=== PATIENT | female | born 1965 | race Caucasian/White ===

== ENCOUNTER → 2020-05-24 15:25 | Outpatient (CLI) | payer OTHER, SELFPAY ==
[2019-05-03 10:52] VITALS: BMI 31.2
[2020-05-24 17:14] LABS: Absolute Lymphocyte Count 1.91 X10^3/uL (0.83-4.51); Absolute Neutrophil Count 6.6 X10^3/uL (2.0-7.7); Basophil# 0.09 X10^3/uL; Basophil% 0.9 % (0-1); Eosinophil# 0.35 X10^3/uL; Eosinophils% 3.7 % (0-5); Hematocrit 36.3 % (37-47); Hemoglobin 12.3 g/dL (12.0-15.0); Lymphocyte # 1.91 X10^3/ul (4.0); Lymphocyte % 20.1 % (19-41); Mean Corp Hgb Conc 33.9 g/dL (32-36); Mean Corpuscular Hgb 33.3 pg (27.0-32.0); Mean Corpuscular Volume 98.4 fL (81-99); Mean Platelet Vol. 9.6 fl (6.2-12.0); Monocyte# 0.54 X10^3/uL; Monocyte% 5.7 % (0-10); NRBC Flagged by Analyzer 0 % (0-5); Neutrophil # 6.57 X10^3/uL (2.7-7.7); Neutrophil % 69.2 % (47-70); Platelet Count 233 K/mm3 (150-450); RBC Distribution Width CV 13.5 % (11.6-14.6); RBC Distribution Width SD 49.2 fl (35.1-43.9); Red Blood Count 3.69 M/mm3 (4.2-5.4); White Blood Count 9.5 K/mm3 (4.4-11.0)
[2020-05-24 18:41] LABS: ALB/GLOB Ratio 1.3 RATIO (0.9-2.4); AST(SGOT) 32 U/L (15-37); Alanine Aminotransfer ALT/SGPT 28 U/L (13-56); Albumin, Serum 4.4 g/dL (3.2-5.0); Alkaline Phosphatase 64 U/L (45-117); Anion Gap 3 (5-15); BUN 20 mg/dL (7-18); BUN/Creat Ratio 16.3 RATIO (10-20); Calcium,Total 8.6 mg/dL (8.5-10.1); Chloride 109 mmol/L (98-107); Creatinine, Serum 1.23 mg/dL (0.55-1.02); EST Glomerular Filtration Rate 48 mL/min (>60); Est Glom Filt Rate - Afr Amer 58 mL/min (>60); Globulin 3.4 g/dL (2.2-4.2); Glucose 90 mg/dL (74-106); Potassium 4.2 mmol/L (3.5-5.1); Protein, Total 7.8 g/dL (6.4-8.2); Sodium Level 139 mmol/L (136-145)
[2020-05-25 14:53] LABS: Hepatitis C Antibody Non-Reactive (Nonreactive); Vitamin D,25 Hydroxy 20.7 ng/mL
== END ==
PROVIDERS: PCP Family Medicine Geriatric Medicine; Visit Provider Family Medicine Geriatric Medicine
DX: E55.9 Vitamin D deficiency, unspecified (principal); R53.83 Other fatigue; Z13.89 Encounter for screening for other disorder
CPT/HCPCS: 36415; 80053; 82306; 84443; 85025; 86803

== ENCOUNTER → 2020-06-08 15:38 | Outpatient (CLI) | payer OTHER, SELFPAY ==
[2019-05-03 10:52] VITALS: BMI 31.2
[2020-06-06 12:14] VITALS: BMI 31.2
--- NOTE | 2020-06-08 15:41 | CT_ITS ---
STUDY: LOW DOSE CT LUNG CANCER SCREENING REASON FOR EXAM: Female, 55 years old. 5-6 cigarettes per day for 25 years. Active smoker. RADIATION DOSAGE (If Supplied By Facility): CTDIvol = ( 3.02 ) mGy, DLP = ( 98.17 ) mGycm TECHNIQUE: No contrast was administered. Low dose technique was utilized (average mAS-38 and kVp 120). 1.25 mm axial source images with a slice interval of 1.25-mm were reconstructed in lung windows. 2.5 mm axial source images with a slice interval of 2.5-mm were reconstructed in lung windows. 5.0 mm axial source images with a slice interval of 5.0-mm were reconstructed in soft tissue windows. Nodule measured using lung windows on PACS and/or independent workstation with automated measurement of minimum and maximum diameter. Nodule measurement reported as average diameter rounded to the nearest whole number. Growth is defined as an increase ins size of greater than 1.5 mm. COMPARISON: None. NODULES: Nodule #: 1 Density: Solid Lung location: Left upper lobe: Pleural-based Location in series: Series Number: 2 Image: 48 Size - D1 x D2 mm: 1 x 1 mm: 1 mm average diameter Margin: Smooth Shape: Round Calcification: Yes Fat: No Temporal comparison: None Total lung nodules (excluding granulomas): 0 Emphysema: No emphysematous changes. There is a small bleb versus air cyst in the left lower lobe. Endobronchial lesion: None Aorta: Minimal atherosclerotic changes of the aortic arch. There is no aneurysm. Coronary arteries: Normal Heart: Normal Pulmonary artery: Normal Mediastinal nodes: Not Other chest and abdominal findings: Bilateral degenerative changes of the thoracic spine. CT/Low Dose CT Lung Screening IMPRESSION: Lung-RADS category 1 - Continue annual screening with LDCT in 12 months. IMPORTANT NOTES FOR USE: ACR Lung-RADS Version 1.0 Assessment Categories Release Date: March 21, 2014 Category: Coded 0-4 bases on nodule(s) with highest degree of suspicion. Negative screen is defined as categories 1 and 2; a positive screen is defined as categories 3 and 4. Category 3 and 4A nodules that are unchanged on interval CT should be coded as category 2, and individuals returned to screening in 12 months. Category 4X: Category 3 or 4 nodules with additional imaging findings that increase the suspicion of lung cancer, such as spiculation, GGN that doubles in size in 1 year, enlarged lymph notes, etc. Category Modifiers: S (significant finding unrelated to lung cancer) and C (prior history of treated lung cancer) may be added to the 0-4 Lung-RADS Electronically Signed: Eamon Eid DO at 16:11 EDT Tel [phone], Service support ,
== END ==
PROVIDERS: PCP Family Medicine Geriatric Medicine; Referring Provider Family Medicine Geriatric Medicine; Visit Provider Family Medicine Geriatric Medicine
DX: Z12.2 Encounter for screening for malignant neoplasm of respiratory organs (principal); F17.210 Nicotine dependence, cigarettes, uncomplicated; T65.222S Toxic effect of tobacco cigarettes, intentional self-harm, sequela
CPT/HCPCS: G0297

== ENCOUNTER → 2020-06-14 15:14 | Outpatient (CLI) | payer OTHER, SELFPAY ==
[2020-06-06 12:14] VITALS: BMI 31.2
--- NOTE | 2020-06-14 15:15 | RAD_ITS ---
STUDY: X-RAY - PELVIS AND LEFT HIP REASON FOR EXAM: Female, 55 years old. hip pain TECHNIQUE: 3 views of the pelvis and hip. COMPARISON: None. FINDINGS: There is a non-specific bowel gas pattern. There are multiple calcified phleboliths. Status post tubal ligation. Scattered few dense bone lesions likely bone islands. Intact pelvic ring. Normal bilateral superior and inferior pubic rami. Normal pubic symphysis. Normal bilateral ischial tuberosities. Extensive marginal osteophytosis and degenerative cyst formation of the femoral head. Sclerotic and cystic changes with marginal osteophytosis of the acetabulum. Severe joint space narrowing. Similar but not as extensive findings of the right hip. RAD/HIP, UNI W/ Pelvis 2-3 Views IMPRESSION: Advanced osteoarthritic changes of the left hip as described above. Electronically Signed: Trish Wright MD at 15:58 EDT , Service support ,
--- NOTE | 2020-06-14 15:15 | RAD_ITS ---
STUDY: X-RAY - LUMBAR SPINE REASON FOR EXAM: Female, 55 years old. hip and LBP TECHNIQUE: 5 view(s) of the lumbar spine were obtained. COMPARISON: None FINDINGS: There is an exaggerated lumbar lordosis. There is no substantial scoliosis. Mild, grade 1, anterolisthesis of L4 secondary to advanced facet arthrosis. Mild, grade 1, anterolisthesis of L5 secondary to advanced facet arthrosis. Normal vertebral bodies and endplates. Mild disc narrowing at L4-5 and moderate disc narrowing at L5-S1. Facet arthrosis present from L2 through S1. Status post cholecystectomy. RAD/L/S Spine Min 4 Views IMPRESSION: Exaggerated lumbar lordosis without scoliosis. Grade 1 anterolisthesis of L4 and L5 secondary to advanced facet arthrosis. Mild to moderate degenerative disc narrowing at L4-5 and L5-S1. Facet arthrosis L2-S1. Electronically Signed: Trish Wright MD at 16:01 EDT , Service support ,
== END ==
PROVIDERS: PCP Family Medicine Geriatric Medicine; Referring Provider Orthopaedic Surgery; Visit Provider Orthopaedic Surgery
DX: M25.552 Pain in left hip (principal); M79.605 Pain in left leg
CPT/HCPCS: 72110; 73502

== ENCOUNTER → 2020-06-27 16:02 | Outpatient (CLI) | payer OTHER, SELFPAY ==
[2020-06-14 15:43] VITALS: BMI 31.2
[2020-06-27 17:31] LABS: Thyroid Stim Hormone (TSH) 0.87 uIU/mL (0.358-3.74)
== END ==
PROVIDERS: PCP Family Medicine Geriatric Medicine; Visit Provider Family Medicine Geriatric Medicine
DX: E03.9 Hypothyroidism, unspecified (principal)
CPT/HCPCS: 36415; 84443

== ENCOUNTER → 2020-08-17 16:52 | Outpatient (CLI) | payer OTHER, SELFPAY ==
[2020-08-07 14:57] VITALS: BMI 31.2
--- NOTE | 2020-08-17 16:54 | MRI_ITS ---
STUDY: MRI LUMBAR SPINE WITHOUT CONTRAST REASON FOR EXAM: Female, 55 years old. radiculopathy, low back pain into L hip, h/o spinal stenosis TECHNIQUE: Standardized fat and water weighted pulse sequences were obtained in the sagittal and axial planes. COMPARISON: X-ray 06/14/2020. FINDINGS: T12-L1: Normal endplates. Disc dehydration. Normal bilateral facet joints. Normal central canal and bilateral lateral recesses. Normal bilateral intervertebral neural foramina. Normal lumbar lordosis. There is no substantial scoliosis. Normal conus medullaris that terminates at the L1 level. L1-2: Normal endplates. Disc dehydration. Normal bilateral facet joints. Normal central canal and bilateral lateral recesses. Normal bilateral intervertebral neural foramina. L2-3: Normal endplates. Disc dehydration. Normal bilateral facet joints. Normal central canal and bilateral lateral recesses. Normal bilateral intervertebral neural foramina. L3-4: Normal endplates. Disc dehydration. Normal bilateral facet joints. Normal central canal and bilateral lateral recesses. Normal bilateral intervertebral neural foramina. L4-5: Normal endplates. Disc dehydration and mild disc space narrowing. 5 mm degenerative anterolisthesis. Severe facet hypertrophy bilaterally. Mild canal stenosis, greater in the transverse dimension, due to anterolisthesis, spondylosis, facet and ligamentous hypertrophy. There is effacement of the lateral recesses bilaterally due to facet and ligamentous hypertrophy. Moderate to severe foraminal stenosis, greater on the left, due to spurring and facet hypertrophy. L5-S1: Normal endplates. Disc dehydration and mild disc space narrowing. 5 mm anterolisthesis. Unilateral left spondylolysis. Severe canal stenosis due to anterolisthesis and shortened pedicles. Moderate foraminal stenosis due to anterolisthesis and uncovered disc. Moderate facet hypertrophy. Normal visualized sacral ala. Normal visualized paraspinous soft tissue structures. MRI/Spine Lumbar (Routine) IMPRESSION: 1. Severe L5-S1 canal stenosis. Anterolisthesis is contributory. 2. Mild L4-L5 canal stenosis. Anterolisthesis is contributory. 3. Moderate to severe foraminal stenosis at L4-L5 and L5-S1. 4. Additional degenerative changes are noted above. Electronically Signed: Noemi Lopez MD at 22:53 EDT Tel , Service support ,
== END ==
PROVIDERS: PCP Family Medicine Geriatric Medicine; Referring Provider Orthopaedic Surgery; Visit Provider Orthopaedic Surgery
DX: M54.16 Radiculopathy, lumbar region (principal); M51.36 Other intervertebral disc degeneration, lumbar region
CPT/HCPCS: 72148

== ENCOUNTER → 2020-08-24 15:08 | Outpatient (CLI) | payer OTHER, SELFPAY ==
[2020-08-21 08:01] VITALS: BMI 31.2
[2020-08-24 15:53] LABS: Absolute Lymphocyte Count 1.93 X10^3/uL (0.83-4.51); Absolute Neutrophil Count 6.7 X10^3/uL (2.0-7.7); Basophil# 0.07 X10^3/uL; Basophil% 0.7 % (0-1); Eosinophil# 0.15 X10^3/uL; Eosinophils% 1.6 % (0-5); Hematocrit 43.3 % (37-47); Hemoglobin 14.5 g/dL (12.0-15.0); Lymphocyte # 1.93 X10^3/ul (4.0); Lymphocyte % 20.5 % (19-41); Mean Corp Hgb Conc 33.5 g/dL (32-36); Mean Corpuscular Hgb 31.3 pg (27.0-32.0); Mean Corpuscular Volume 93.5 fL (81-99); Mean Platelet Vol. 9.7 fl (6.2-12.0); Monocyte# 0.54 X10^3/uL; Monocyte% 5.7 % (0-10); NRBC Flagged by Analyzer 0 % (0-5); Neutrophil # 6.66 X10^3/uL (2.7-7.7); Platelet Count 304 K/mm3 (150-450); RBC Distribution Width CV 11.6 % (11.6-14.6); Red Blood Count 4.63 M/mm3 (4.2-5.4); White Blood Count 9.4 K/mm3 (4.4-11.0)
[2020-08-24 16:26] LABS: ALB/GLOB Ratio 1.1 RATIO (0.9-2.4); AST(SGOT) 13 U/L (15-37); Alanine Aminotransfer ALT/SGPT 19 U/L (13-56); Albumin, Serum 3.9 g/dL (3.2-5.0); Alkaline Phosphatase 77 U/L (45-117); Anion Gap 5 (5-15); BUN 15 mg/dL (7-18); BUN/Creat Ratio 22.3 RATIO (10-20); Calcium,Total 9.1 mg/dL (8.5-10.1); Chloride 106 mmol/L (98-107); Creatinine, Serum 0.67 mg/dL (0.55-1.02); EST Glomerular Filtration Rate 96 mL/min (>60); Est Glom Filt Rate - Afr Amer 116 mL/min (>60); Globulin 3.6 g/dL (2.2-4.2); Glucose 90 mg/dL (74-106); Potassium 4.3 mmol/L (3.5-5.1); Protein, Total 7.5 g/dL (6.4-8.2); Sodium Level 139 mmol/L (136-145); Thyroid Stim Hormone (TSH) 0.34 uIU/mL (0.358-3.74)
== END ==
PROVIDERS: PCP Family Medicine Geriatric Medicine; Visit Provider Family Medicine Geriatric Medicine
DX: R53.83 Other fatigue (principal)
CPT/HCPCS: 36415; 80053; 84443; 85025

== ENCOUNTER → 2020-09-01 16:39 | Outpatient (CLI) | payer OTHER, SELFPAY ==
[2020-08-21 08:01] VITALS: BMI 31.2
--- NOTE | 2020-09-01 16:40 | CT_ITS ---
HISTORY: RIC LEFT HIP, PAIN TECHNIQUE: Noncontrast bone protocol CT of the left lower extremity using [facility] preoperative protocol was performed without contrast. 2D reformats were performed by the technologist. Number of images including paperwork: [id number]. A radiation dose optimization technique was used for this scan. COMPARISON: Left hip 06/14/2020 FINDINGS: BONES: No acute fracture. JOINTS: Severe degenerative changes at the hips are present with the joint space narrowing, subchondral sclerosis, subchondral cystic changes and osteophyte formation. There is some fragmentation of the superior aspect of the left femoral head. Moderate to severe degenerative changes of the medial and lateral compartments of the knees, greater in the medial compartments. SOFT TISSUES: Unremarkable. FOREIGN BODY: No radiopaque foreign body. VISIBLE PELVIS: Colonic diverticulosis. CT/Extremity Lower without Contra IMPRESSION: Severe degenerative changes of the hips. Some fragmentation of the left femoral head is noted. Individualized dose optimization techniques were used for this CT. at 0248 Reported and signed by: Juliet Munguia MD Electronically Signed: Juliet Munguia MD at 2:47 EDT Tel , Service support ,
== END ==
PROVIDERS: PCP Family Medicine Geriatric Medicine; Referring Provider Orthopaedic Surgery; Visit Provider Orthopaedic Surgery
DX: M16.12 Unilateral primary osteoarthritis, left hip (principal)
CPT/HCPCS: 73700

== ENCOUNTER → 2020-09-15 08:50 | Outpatient (CLI) | payer OTHER, SELFPAY ==
[2020-08-21 08:01] VITALS: BMI 31.2
== END ==
PROVIDERS: PCP Family Medicine Geriatric Medicine; Referring Provider Orthopaedic Surgery; Visit Provider Orthopaedic Surgery
DX: Z00.00 Encounter for general adult medical examination without abnormal findings (principal)

== ENCOUNTER 2020-09-19 09:58 | Inpatient (IN) | payer OTHER, SELFPAY ==
[2020-08-21 08:01] VITALS: BMI 31.2
[2020-09-12 09:39] LABS: Prothrombin Time (Protime)PT. 12.2 SECONDS (11.7-14.9)
[2020-09-12 09:40] LABS: Partial Thromboplast Time 24.8 Seconds (24.1-36.2)
[2020-09-12 09:51] LABS: Magnesium 2.3 mg/dL (1.6-2.6)
[2020-09-19] VITALS (13 sets, daily range): BP systolic 101–177; BP diastolic 66–93; PULSE 51–90; RESP 16–18; TEMP 35.8–37.2; O2SAT 94–100; BMI 27.9
[2020-09-19] MEDS: Celecoxib 200 MG Capsule 400 MG PO (06:07)
[2020-09-19] MEDS: Acetaminophen 500 MG Tablet 1000 MG PO ×3 (06:07→22:06)
[2020-09-19] MEDS: Gabapentin 600 MG Tablet PO (06:07)
[2020-09-19] MEDS: Scopolamine 1mg/72hr Patch 1 PATCH TRANSDERM. (06:08)
[2020-09-19] MEDS: Lactated Ringers 1,000 ML 999 ML IV (06:09)
[2020-09-19 07:06] LABS: Bedside Glucose 106 mg/dL (70-110)
--- NOTE | 2020-09-19 07:24 | HP.PCM_ITS ---
History and Physical Date of Admission: 09/19/20 Intake Vital Signs 08/21/20 BMI 31.2 Intake Visit Reasons: LEFT HIP Allergies iodine Allergy (Verified 05/03/19 10:53) Swelling [facility] Medical History (Updated 05/03/19 @ 10:54 by Sridevi Molina) Thyroid cancer (Acute) Surgical History (Updated 05/03/19 @ 10:54 by Sridevi Molina) History of cholecystectomy (Acute) Social History (Updated 08/21/20 @ 15:[address] Frank Ruiz DO) Smoking Status: Unknown if ever smoked alcohol intake: never HPI LEFT HIP: Details: Parts of this documentation were recorded by a scribe, this documentation accurately reflects the service provided and the decisions made by me, Dr. Frank Ruiz DO 08/21/20 0801. JACK DUNN is a 55 year old F here today for F/U after having lumbar MRI. Patient continues to have left groin pain and left hip pain along with radiating left leg pain. Denies numbness, tingling or other associated symptoms. Patient states the the worst pain is the left groin pain and left lateral hip pain. She does have a hx of leg stripping from varicose veins. Denies any leg stenting. Does have a hx of thyroid cancer without metastisis. Ortho Exam General General: Yes no acute distress Neurologic: Yes alert, Yes oriented x3 Psychologic: Yes reasonable and appropriate Left Hip Skin/Wound: No Ecchymosis, No soft tissue swelling, No Erythema Hip: Absent eccymosis, soft tissue swelling or erythema Homans Sign: No HIP: crepitation left hip socket 0 internal rotation 10 external rotation 4/5 hip flexion strenght with no pain sensation intact over BL lower extremities good strength throughout lower extremity Supplemental Info 08/17/2020 MRI lumbar spine: 1. Severe L5-S1 canal stenosis. Anterolisthesis is contributory. 2. Mild L4-L5 canal stenosis. Anterolisthesis is contributory. 3. Moderate to severe foraminal stenosis at L4-L5 and L5-S1. 4. Additional degenerative changes are noted above. 06/14/2020 x-ray left hip: advanced [id number] DJD 06/14/2020 x-ray lumbar spine: Advanced spondylosis of facets and spondylolisthesis L4-L5 L5-S1 grade 1 Assessment & Plan Problems 1. Lumbar radiculopathy M54.16 2. Spinal stenosis of lumbar region, unspecified whether neurogenic claudication present M48.061 3. Spondylolisthesis, lumbar region M43.16 4. Primary osteoarthritis of left hip M16.12 Plan Personally reviewed patients MRI of the lumbar spine. Patient educated that she does have some stenosis at L5-S1 along with a spondylolisthesis. Patient educated that the radiating leg pain is from the lumbar spine but she does have OA of her left hip and the right hip as seen in her pelvic x-rays. Patient educated that she will need to see a spinal surgeon for the low back pain and radiating leg pain but she is also a candidate for a left total hip. Patient states that the left hip pain is worse and she wishes to proceed with left total hip arthroplasty first. Risks, benefits and alternatives of surgery reviewed including but not limited to bleeding, infection, nerve, artery and/or tissue damage, fracture, VTE, leg length discrepancy, dislocation, need for hip precautions, continued pain and expected post-operative course. Patient educated that I would recommend the West robotic assist. She will have strict hip precautions for 6 weeks after surgery and will keep the restrictions in mind for 3 months post op to avoid hip dislocation post op. Follow up 2 weeks post op or sooner if pain, swelling, numbness or associated symptoms, or concerns develop. All questions answered. Patient in agreement of plan. Coding Level of Care Code Off vis,est,level 3 Diagnoses Lumbar radiculopathy M54.16 Spinal stenosis of lumbar region, unspecified whether neurogenic claudication present M48.061 ??Neurogenic claudication status: unspecified Spondylolisthesis, lumbar region M43.16 Primary osteoarthritis of left hip M16.12 I have re-examined the patient. There are no clinical changes since date of exam
[2020-09-19] MEDS: Lactated Ringers 1,000 ML 125 ML IV ×3 (07:30→16:17)
[2020-09-19] MEDS: Cefazolin 2 GM in 0.9% Normal Saline 100 ML IV (07:40)
[2020-09-19] MEDS: dexAMETHasone 10 MG/ML Vial IV (07:45)
--- NOTE | 2020-09-19 10:00 | DCINST_ITS ---
Discharge Diet: No Restrictions Weight Bearing Status: Weight bearing as tolerated Call your doctor if you observe: Shortness of breath, Chest pain Additional Instructions: Begin daily showering warm water antibacterial soap postop day #3( 72hrs Post- operatively) and then daily. Leave the dressing on for 72 hours postoperatively then may remove prior to first shower and change dressing daily after this until no drainage for 2 consecutive days then may leave open to air. Follow hip precautions that were reviewed in hospital. Wear compression stockings, may remove at night. Start physical therapy as directed in hospital. Call Dr. Ruiz's office with any concerns. Allergies/Adverse Reactions: Allergies iodine Allergy (Verified 09/19/20 05:32) Swelling Medications to take at Discharge Levothyroxine Sodium [Synthroid] 300 mcg PO DAILY 12/30/14 celecoxib 200 mg capsule 200 mg PO DAILY 06/14/20 Primary Care Physician: Enrrique Lockhart Chi, MD [Primary Care Provider] - Test Results: Test results from this visit will be discussed in further detail at your follow- up appointment, if applicable. Please Follow Up With: Frank Ruiz DO - 2 weeks
--- NOTE | 2020-09-19 10:01 | PCM.OPRPT ---
Report of Operation Date of Procedure: 09/19/20 Description of Surgical Findings:: Preoperative diagnosis: Left hip DJD Postoperative diagnosis: Same Procedure: CT-guided Makoplasty assisted left total hip arthroplasty Implants: Molly Accolade II stem size 5, 127 degree neck angle 0 neck length 56 mm Trident II acetabular shell with 40 mm cancellous screw 36 mm ceramic head Anesthesia: Spinal EBL: 150 cc Complications: None Condition: Stable to PACU Indication for procedure: This is a 55-year-old female who has had long-standing arthrosis of the hip who has failed conservative treatment and wished to undergo total hip arthroplasty. We did discuss operative versus nonoperative intervention including risks of bleeding, infection , nerve artery tissue damage, need for further surgery, fracture, leg length discrepancy dislocation blood clot and need for postoperative physical therapy and postoperative expectations. An informed consent was signed. Procedure: Patient was met in the preoperative holding area once again the operative extremity was identified by both patient and physician and was marked. Patient was met by anesthesia spinal anesthesia was placed. patient was then positioned in the lateral decubitus position on a well-padded pegboard with an axillary roll. All bony prominences were checked and padded. The patient was prepped and draped in the usual sterile fashion. A timeout was called to ensure the proper patient procedure and extremity were being contemplated. Anatomic landmarks were palpated and marked for a standard posterior lateral approach. Prior to this the ASIS was palpated and 3 fingerbreadths proximal to this 3 pins were placed at a 45 degree angle into the iliac crest with good purchase, stab incisions were made with a 15 blade into the skin prior to placement. The Makoplasty array was then secured. A 10 blade scalpel was used to make a posterior incision through the skin and subcutaneous tissue. retractors were used and electrocautery was used to maintain meticulous hemostasis and dissect full-thickness flaps until the gluteal fascia was reached. The gluteal fascia was incised in line with the gluteal fibers. The bursal tissue was then freed from the underside and a Charnley retractor was placed. The femoral trochanteric checkpoint was placed and leg length was assessed using the trochanteric checkpoint and an EKG lead that was placed on the knee prior to prepping the leg .the fat pad was then elevated off of the external rotators with electrocautery and the external rotators were dissected off of the greater trochanter including the piriformis and were tagged with #1 Ethibond for later repair. The joint capsule opened with posterior trapdoor technique. The hip was surgically dislocated. The measurement on the preoperative CT from the top of the lesser trochanter to the femoral neck cut was marked Hohmann was placed around the lesser trochanter. A neck cutting guide was used to aspen the neck with a Bovie and an oscillating saw was used complete the femoral neck cut. The femoral head was then removed and sized. We then turned our attention to the acetabulum. A Bovie was used to make a perforation in the anterior joint capsule and a Arceo retractor was placed this was repeated in the 6 o'clock position and a wide tegan was placed there. With a long handled knife the labral and pulvinar tissue were removed. We then registered the acetabulum with the pointing array and confirmed our landmarks. Once the socket was thoroughly prepared and labral tissue pulmonary was removed we single reamed with the robotic arm. We then used the robotic arm to position the acetabular implant and impacted it into place under robotic guidance. We then proceeded to place a posterior superior screw by drilling first measuring and inserting the screw. We then inserted a trial liner. And turned our attention back to the femur at this point a femoral elevator was used. As well as a pointed wide Hohmann around the lesser trochanter and a Hohmann to help retract the gluteus medius. A box chisel was used to remove excess lateral neck followed by a canal finder and a lateralizing reamer. This was followed by sequential broaches. Attention was made of the version within the canal based on preoperative templating. Once the final broach was seated we then trialed reduced the hip it was determined that a 127 degree neck angle with a 0 neck length was the appropriate size. We then checked stability with shuck testing as well as flexion and internal rotation. then proceeded with hip extension and checked leg lengths at the knees and heels as well as with the trochanteric checkpoint and knee EKG lead. At this point trials were removed. A liner was inserted to the cup. The femoral stem was inserted. We re-trialed and then proceeded to impact the femoral head onto the Spike taper. We then surgically reduce the hip check stability again and leg lengths and were satisfied. Betadine rinse was allowed to sit for 5 minutes while everyone changed their gloves. Thorough irrigation was performed. Followed by closure of the external rotators with #2 FiberWire followed by closure of gluteal fascia with #1 Ethibond. 0 Vicryl fat stitches and 2-0 Vicryl subcutaneous stitches and david in the skin. A pulls were placed in the pin sites over the iliac crest with Xeroform 4 x 4 and OpSite. dressing was applied to incisional area with Mepilex Ag and an abduction pillow was placed. Patient tolerated the procedure well there was no intraoperative complications all counts were correct and the patient was brought back to the PACU in stable condition
--- NOTE | 2020-09-19 10:20 | RAD_ITS ---
STUDY: X-RAY - PELVIS AND LEFT HIP REASON FOR EXAM: Female, 55 years old. POST OP TECHNIQUE: 3 views of the pelvis and hip. COMPARISON: Comparison is made with prior study dated 06/14/2020. FINDINGS: The patient is status post left hip replacement. There is good alignment. Postoperative soft tissue changes. Marked degree of joint space narrowing in the osteoarthritis of the right hip joint. RAD/Hip Min 2 Views (Portable) IMPRESSION: Status post left total hip prosthesis. There is good alignment. Postoperative soft tissue changes. Electronically Signed: Art Mcguire, at 10:51 EDT , Service support ,
[2020-09-19] MEDS: Cefazolin 1 GM/50 ML BAG IV ×2 (11:36→22:06)
[2020-09-19] MEDS: oxyCODONE 5 MG Tablet PO ×2 (14:10→19:48)
--- NOTE | 2020-09-19 18:53 | NURSING ---
ORTIZ CATHETER D/C WITHOUT DIFFICULTY. EMPTIED OF 225ML CLEAR YELLOW URINE. INSTRUCTED WE WILL NEED TO MEASURE URINE OUTPUT TO MAKE SURE NO URINARY RETENTION. STATES UNDERSTANDING.
[2020-09-19] MEDS: Senna/Docusate Sodium 1 Tablet 2 TABLET PO (22:06)
[2020-09-20] MEDS: oxyCODONE 5 MG Tablet PO ×3 (02:04→13:08)
[2020-09-20 02:25] VITALS: BP 129/62; PULSE 72; RESP 16; TEMP 36.6; O2SAT 95
[2020-09-20] MEDS: Acetaminophen 500 MG Tablet 1000 MG PO ×2 (05:32→13:09)
[2020-09-20] MEDS: Levothyroxine 150 MCG Tablet 300 MCG PO (05:32)
[2020-09-20] MEDS: Cefazolin 1 GM/50 ML BAG IV (05:32)
[2020-09-20] MEDS: APIXABAN 2.5 MG TABLET PO (06:16)
[2020-09-20 06:19] LABS: Hematocrit 36.8 % (37-47); Mean Corp Hgb Conc 32.6 g/dL (32-36); Mean Corpuscular Hgb 30.8 pg (27.0-32.0); Mean Corpuscular Volume 94.6 fL (81-99); Mean Platelet Vol. 10.1 fl (6.2-12.0); Platelet Count 239 K/mm3 (150-450); RBC Distribution Width CV 12.2 % (11.6-14.6); RBC Distribution Width SD 42.7 fl (35.1-43.9); Red Blood Count 3.89 M/mm3 (4.2-5.4); White Blood Count 9.6 K/mm3 (4.4-11.0)
[2020-09-20 06:41] LABS: Anion Gap 5 (5-15); BUN 11 mg/dL (7-18); BUN/Creat Ratio 20.6 RATIO (10-20); Calcium,Total 8.2 mg/dL (8.5-10.1); Chloride 110 mmol/L (98-107); Creatinine, Serum 0.53 mg/dL (0.55-1.02); EST Glomerular Filtration Rate 125 mL/min (>60); Est Glom Filt Rate - Afr Amer 151 mL/min (>60); Estimated Creatinine Clearance 105.38 ml/min; Glucose 97 mg/dL (74-106); Potassium 3.8 mmol/L (3.5-5.1); Sodium Level 141 mmol/L (136-145)
[2020-09-20] MEDS: Senna/Docusate Sodium 1 Tablet 2 TABLET PO (08:48)
--- NOTE | 2020-09-20 08:59 | PN.ORTHO_ITS ---
Subjective: Seen and examined. Doing okay. Pain controlled. No complaints - Physical Exam Vitals/I&O's: Vital Signs Temp Pulse Resp BP Pulse Ox 98 F 72 16 129/62 H 95 09/20/20 02:25 09/20/20 02:25 09/20/20 02:25 09/20/20 02:25 09/20/20 02:25 Oxygen Flow Rate (L/min) 6 Oxygen Delivery Method Room Air Weight: 167 lb 15.876 oz Body Mass Index (BMI) 27.9 Intake and Output for Last 24 Hours 09/18/20 09/19/20 09/20/20 23:59 23:59 23:59 Intake Total 3763.67 / 3763.67 1050 / 1050 Output Total 2775 / 2775 1250 / 1250 Balance 988.67 / 988.67 -200 / -200 General: Alert, Oriented x3, Cooperative, No apparent distress Extremities: - - Dressing clean dry and intact compartment soft neurovascular intact Laboratory Results 09/20/20 05:48: WBC 9.6, RBC 3.89 L, Hgb 12.0, Hct 36.8 L, MCV 94.6, MCH 30.8, MCHC 32.6, RDW Std Deviation 42.7, RDW Coeff of Haresh 12.2, Plt Count 239, MPV 10.1 09/20/20 05:48: Sodium 141, Potassium 3.8, Chloride 110 H, Carbon Dioxide 26.0, Anion Gap 5, BUN 11, Creatinine 0.53 L, Estim Creat Clear Calc 105.38, Est GFR (MDRD) Af Amer 151, Est GFR (MDRD) Non-Af 125, BUN/Creatinine Ratio 20.6 H, Glucose 97, Calcium 8.2 L Current Medications Acetaminophen (Acetaminophen 500 Mg Tablet) 1,000 mg PO Q8 [facility] Last Admin: 09/20/20 05:32 Dose: 1,000 mg Documented by: Apixaban (Apixaban 2.5 Mg Tablet) 2.5 mg PO 0700,1900 [facility] Last Admin: 09/20/20 06:16 Dose: 2.5 mg Documented by: Hydromorphone HCl (Hydromorphone 0.5 Mg/0.5 Ml Syringe) 0.5 mg IV Q2H PRN PRN PRN Reason: Pain Score 6-10 Ketorolac Tromethamine (Ketorolac 15 Mg/Ml Vial) 15 mg IV Q6H PRN PRN PRN Reason: Pain Score 1-5 Stop: 09/21/20 09:56 Levothyroxine Sodium (Levothyroxine 150 Mcg Tablet) 300 mcg PO DAILY@0600 [facility] Last Admin: 09/20/20 05:32 Dose: 300 mcg Documented by: Ondansetron HCl (Ondansetron 4 Mg/2 Ml Vial) 4 mg IV Q6H PRN PRN PRN Reason: NAUSEA Oxycodone HCl (Oxycodone 5 Mg Tablet) 5 - 10 mg PO Q4H PRN PRN PRN Reason: Pain Score 4-10 Last Admin: 09/20/20 08:48 Dose: 10 mg Documented by: Senna/Docusate Sodium (Senna/Docusate Sodium 1 Tablet) 2 tablet PO BID [facility] Last Admin: 09/20/20 08:48 Dose: 2 tablet Documented by: Sodium Chloride (0.9% Saline Lock 10 Ml Syringe) 10 - 40 ml IV UD PRN PRN Reason: SALINE FLUSH Medical Necessity - Tobacco Use Smoking Status: Current every day smoker Tobacco Use: Cigarettes Assessment/Plan Postop day #1 left total hip arthroplasty Doing well will DC home after physical therapy DVT prophylaxis MARVIN De Luna 3 weeks postop follow-up in the office 2 weeks start outpatient physical therapy
[2020-09-20 09:19] VITALS: BP 107/66; PULSE 73; RESP 18; TEMP 36.8; O2SAT 95
--- NOTE | 2020-09-20 10:05 | CASEMGMT ---
DANIA TIMMONS Face to Face with patient for initial transition planning/care coordination assessment. RN CM introduced self and role at [facility]. Patient sitting in chair, alert and oriented. Patient willing to participate in assessment and is able to answer all questions appropriately. Care providers, pharmacy, and demographics verified. Patient wishes to discharge home and is setup with [facility] for outpatient therapy. Patient states she has no further needs or concerns at this time. CM to follow for discharge planning needs that may arise. PCP: Richy Specialists: Varghese Silveira Pharmacy: [facility] Insurance: [employer] Prescription Benefit: yes Living Will/HPOA: none LNOK: Daughter Living Arrangements: Patient lives with daughter in a duplex, with access to bed and bath on first floor if needed. 1 step to enter home. Patient independent at home prior to surgery. Transportation: daughter DME/C: Patient states she has shower chair, cane, raised toilet, grab bars, hip kit, and walker at home. Patient is scheduled for outpatient therapy at [facility] starting Friday. Disposition Plan: Patient to discharge home with outpatient therapy, family support, and follow-up plans in place. Misa NELSON, RN, CM
[2020-09-20 13:16] VITALS: BP 109/68; PULSE 76; RESP 18; TEMP 36.7; O2SAT 98
== END 2020-09-20 15:04 | disposition home or self-care (01) | DRG 470 ==
LOC: SDC 11:09 → MS3 16:01
PROVIDERS: Anesthesiology; Admitting Provider Orthopaedic Surgery; PCP Family Medicine Geriatric Medicine; Referring Provider Orthopaedic Surgery; Visit Provider Orthopaedic Surgery
PROC: 8E0Y0CZ Robotic Assisted Procedure of Lower Extremity, Open Approach (ICD-10-PCS; CPT 27130; principal; 2020-09-19 07:00)
DX: M16.12 Unilateral primary osteoarthritis, left hip (principal); F17.210 Nicotine dependence, cigarettes, uncomplicated; M43.16 Spondylolisthesis, lumbar region; M54.16 Radiculopathy, lumbar region; M48.061 Spinal stenosis, lumbar region without neurogenic claudication; Z20.828 Contact with and (suspected) exposure to other viral communicable diseases; Z85.850 Personal history of malignant neoplasm of thyroid; Z92.3 Personal history of irradiation; Z79.899 Other long term (current) drug therapy
CPT/HCPCS: 36415; 73502; 80048; 82962; 83735; 85027; 85610; 85730; 86850; 86900; 86901; 87081; 87635; 97110; 97162; 97166; 97530; 97535; C1713; C1776; C9803; J7040; J7120; J2405; U0003

== ENCOUNTER → 2020-11-28 13:26 | Outpatient (CLI) | payer OTHER, SELFPAY ==
[2020-11-28 13:45] LABS: Absolute Lymphocyte Count 1.67 X10^3/uL (0.83-4.51); Absolute Neutrophil Count 9.9 X10^3/uL (2.0-7.7); Basophil# 0.07 X10^3/uL; Basophil% 0.6 % (0-1); Eosinophils% 1.6 % (0-5); Hematocrit 47.1 % (37-47); Hemoglobin 15.3 g/dL (12.0-15.0); Lymphocyte # 1.67 X10^3/ul (4.0); Lymphocyte % 13.3 % (19-41); Mean Corp Hgb Conc 32.5 g/dL (32-36); Mean Corpuscular Hgb 29.9 pg (27.0-32.0); Mean Corpuscular Volume 92.2 fL (81-99); Mean Platelet Vol. 9.4 fl (6.2-12.0); Monocyte# 0.66 X10^3/uL; Monocyte% 5.3 % (0-10); NRBC Flagged by Analyzer 0 % (0-5); Neutrophil # 9.93 X10^3/uL (2.7-7.7); Neutrophil % 78.9 % (47-70); Platelet Count 312 K/mm3 (150-450); RBC Distribution Width CV 13.4 % (11.6-14.6); RBC Distribution Width SD 45.5 fl (35.1-43.9); Red Blood Count 5.11 M/mm3 (4.2-5.4); White Blood Count 12.6 K/mm3 (4.4-11.0)
[2020-11-28 14:13] LABS: Vitamin D,25 Hydroxy 10.1 ng/mL
[2020-11-28 14:21] LABS: AST(SGOT) 11 U/L (15-37); Alanine Aminotransfer ALT/SGPT 19 U/L (13-56); Albumin, Serum 3.8 g/dL (3.2-5.0); Alkaline Phosphatase 102 U/L (45-117); Anion Gap 8 (5-15); BUN 16 mg/dL (7-18); BUN/Creat Ratio 19.9 RATIO (10-20); Chloride 105 mmol/L (98-107); EST Glomerular Filtration Rate 78 mL/min (>60); Est Glom Filt Rate - Afr Amer 94 mL/min (>60); Globulin 3.8 g/dL (2.2-4.2); Glucose 99 mg/dL (74-106); Protein, Total 7.6 g/dL (6.4-8.2); Sodium Level 138 mmol/L (136-145); Thyroid Stim Hormone (TSH) 2.93 uIU/mL (0.358-3.74)
== END ==
PROVIDERS: PCP Family Medicine Geriatric Medicine; Visit Provider Family Medicine Geriatric Medicine
DX: R53.83 Other fatigue (principal)
CPT/HCPCS: 36415; 80053; 82306; 84443; 85025

== ENCOUNTER → 2021-05-31 11:34 | Outpatient (CLI) | payer OTHER, SELFPAY ==
[2021-05-31 12:27] LABS: Absolute Lymphocyte Count 1.69 X10^3/uL (0.83-4.51); Absolute Neutrophil Count 8.2 X10^3/uL (2.0-7.7); Basophil# 0.06 X10^3/uL; Basophil% 0.6 % (0-1); Eosinophil# 0.11 X10^3/uL; Hematocrit 43.5 % (37-47); Hemoglobin 14.4 g/dL (12.0-15.0); Lymphocyte # 1.69 X10^3/ul (0.83-4.51); Lymphocyte % 15.8 % (19-41); Mean Corp Hgb Conc 33.1 g/dL (32-36); Mean Corpuscular Hgb 30.7 pg (27.0-32.0); Mean Corpuscular Volume 92.8 fL (81-99); Mean Platelet Vol. 10.1 fl (6.2-12.0); Monocyte# 0.64 X10^3/uL; NRBC Flagged by Analyzer 0 % (0-5); Neutrophil # 8.19 X10^3/uL (2.7-7.7); Neutrophil % 76.2 % (47-70); Platelet Count 296 K/mm3 (150-450); RBC Distribution Width CV 12.5 % (11.6-14.6); RBC Distribution Width SD 42.2 fl (35.1-43.9); Red Blood Count 4.69 M/mm3 (4.2-5.4); White Blood Count 10.7 K/mm3 (4.4-11.0)
[2021-05-31 12:51] LABS: ALB/GLOB Ratio 1.2 RATIO (0.9-2.4); AST(SGOT) 16 U/L (15-37); Alanine Aminotransfer ALT/SGPT 21 U/L (13-56); Alkaline Phosphatase 93 U/L (45-117); Anion Gap 8 (5-15); BUN 14 mg/dL (7-18); BUN/Creat Ratio 20.6 RATIO (10-20); Calcium,Total 8.9 mg/dL (8.5-10.1); Chloride 105 mmol/L (98-107); Creatinine, Serum 0.68 mg/dL (0.55-1.02); EST Glomerular Filtration Rate 95 mL/min (>60); Est Glom Filt Rate - Afr Amer 114 mL/min (>60); Globulin 3.3 g/dL (2.2-4.2); Glucose 103 mg/dL (74-106); Potassium 4.1 mmol/L (3.5-5.1); Protein, Total 7.3 g/dL (6.4-8.2); Sodium Level 140 mmol/L (136-145); Thyroid Stim Hormone (TSH) 0.14 uIU/mL (0.358-3.74)
== END ==
PROVIDERS: PCP Family Medicine Geriatric Medicine; Visit Provider Family Medicine Geriatric Medicine
DX: R53.83 Other fatigue (principal)
CPT/HCPCS: 36415; 80053; 84443; 85025

== ENCOUNTER → 2021-06-14 10:43 | Outpatient (CLI) | payer OTHER, SELFPAY ==
[2020-10-04 09:29] VITALS: BMI 31.2
--- NOTE | 2021-06-14 10:45 | BI_ITS ---
MAMMOGRAPHY - BILATERAL SCREENING REASON FOR EXAM: Female, 56 years old. Routine annual screening examination. PERTINENT HISTORY: Aunt with breast cancer. TECHNIQUE: Digital bilateral breast wally (3D mammographic acquisition) in the CC and MLO projections. 2-D mediolateral oblique (MLO) and craniocaudad (CC) views of both breasts were obtained. CAD: Full Field Digital Mammography with Computer Added Detection was performed. COMPARISON: None. Baseline examination. FINDINGS: Breast Composition: The breasts are almost entirely fatty. There are no dominant masses or suspicious calcifications. Small benign-appearing bilateral axillary. No other significant abnormalities are identified. BI/SCRN MAMM (CAD)W/WALLY BILAT IMPRESSION: Negative screening mammogram. Yearly followup mammogram recommended. (A) ASSESSMENT CATEGORY: BIRADS Category 2: Benign. A letter regarding these results will be sent to the patient by the facility within 30 days. Approximately 10% of breast cancers are not detected by mammography. A normal mammogram should not delay biopsy of a clinically suspicious abnormality. [id number] Electronically Signed: Art Mcguire MD at 11:53 EDT , Service support ,
== END ==
PROVIDERS: PCP Family Medicine Geriatric Medicine; Referring Provider Family Medicine Geriatric Medicine; Visit Provider Family Medicine Geriatric Medicine
DX: Z12.31 Encounter for screening mammogram for malignant neoplasm of breast (principal)
CPT/HCPCS: 77063; 77067

== ENCOUNTER → 2021-07-12 08:36 | Outpatient (CLI) | payer OTHER, SELFPAY | PROVIDERS: PCP Family Medicine Geriatric Medicine; Referring Provider Family Medicine; Visit Provider Family Medicine | DX: U07.1 COVID-19 (principal) | CPT/HCPCS: 87635; U0005; U0003 ==

== ENCOUNTER → 2021-09-25 12:47 | Outpatient (CLI) | payer OTHER, SELFPAY ==
--- NOTE | 2021-09-25 13:02 | CT_ITS ---
STUDY: CT RIGHT LOWER EXTREMITY WITHOUT CONTRAST REASON FOR EXAM: Right hip osteoarthritis, surgical planning. TECHNIQUE: Transaxial CT imaging of the lower extremity was performed. Sagittal and coronal images were reconstructed. Individualized dose optimization techniques were used for this CT. COMPARISON: Radiographs 09/10/2021. FINDINGS: Hip: There is advanced right hip arthrosis with marginal osteophytes of the femoral head, severe joint space loss, subchondral cystic change of the acetabulum and fragmentation of the superior femoral head (coronal reconstructions 54-68). There is a left hip arthroplasty. There are pelvic phleboliths. Knee: There is preservation of joint space of all 3 compartments of the knee. CT/Extremity Lower without Contra IMPRESSION: Advanced right hip arthrosis. Electronically Signed: Nba Masters MD at 14:44 EDT Tel , Service support ,
== END ==
PROVIDERS: PCP Family Medicine Geriatric Medicine; Referring Provider Orthopaedic Surgery; Visit Provider Orthopaedic Surgery
DX: M16.11 Unilateral primary osteoarthritis, right hip (principal)
CPT/HCPCS: 73700

== ENCOUNTER 2021-10-09 05:14 | Day surgery (SDC) | payer OTHER, SELFPAY ==
--- NOTE | 2021-09-26 15:54 | EKG12_ITS ---
Test Reason : PREOP Blood Pressure : / mmHG Vent. Rate : 076 BPM Atrial Rate : 076 BPM P-R Int : 162 ms QRS Dur : 082 ms QT Int : 390 ms P-R-T Axes : 043 -33 034 degrees QTc Int : 438 ms Normal sinus rhythm Left axis deviation Abnormal ECG Confirmed by NAYELI LUIS, PARVIZ ([id number]), website/blog editor MOSHE MARIO ([id number]) on 09/27/2021 9:01:55 AM Referred By: Frank Ruiz Confirmed By:PARVIZ TYLER MD
[2021-09-26 16:24] LABS: Absolute Lymphocyte Count 1.81 X10^3/uL (0.83-4.51); Absolute Neutrophil Count 4.6 X10^3/uL (2.0-7.7); Basophil# 0.07 X10^3/uL; Eosinophil# 0.18 X10^3/uL; Eosinophils% 2.5 % (0-5); Hematocrit 41.1 % (37-47); Hemoglobin 13.6 g/dL (12.0-15.0); Lymphocyte # 1.81 X10^3/ul (0.83-4.51); Mean Corp Hgb Conc 33.1 g/dL (32-36); Mean Corpuscular Hgb 30.6 pg (27.0-32.0); Mean Corpuscular Volume 92.6 fL (81-99); Monocyte# 0.54 X10^3/uL; Monocyte% 7.5 % (0-10); NRBC Flagged by Analyzer 0 % (0-5); Neutrophil # 4.61 X10^3/uL (2.7-7.7); Neutrophil % 63.7 % (47-70); Platelet Count 314 K/mm3 (150-450); RBC Distribution Width SD 44.3 fl (35.1-43.9); Red Blood Count 4.44 M/mm3 (4.2-5.4); White Blood Count 7.2 K/mm3 (4.4-11.0)
[2021-09-26 16:34] LABS: Prothrombin Time (Protime)PT. 12.7 SECONDS (11.7-14.9)
[2021-09-26 16:53] LABS: Anion Gap 4 (5-15); BUN 19 mg/dL (7-18); BUN/Creat Ratio 22.8 RATIO (10-20); Calcium,Total 8.7 mg/dL (8.5-10.1); Chloride 108 mmol/L (98-107); Creatinine, Serum 0.83 mg/dL (0.55-1.02); EST Glomerular Filtration Rate 75 mL/min (>60); Est Glom Filt Rate - Afr Amer 90 mL/min (>60); Glucose 93 mg/dL (74-106); Potassium 4.4 mmol/L (3.5-5.1); Sodium Level 140 mmol/L (136-145)
[2021-09-26 17:32] LABS: Magnesium 2.6 mg/dL (1.6-2.6); Thyroid Stim Hormone (TSH) 0.12 uIU/mL (0.358-3.74)
[2021-09-28 13:31] LABS: Fructosamine 223 umol/L (0-285)
[2021-10-09] VITALS (11 sets, daily range): BP systolic 107–151; BP diastolic 58–80; PULSE 52–92; RESP 16–18; TEMP 35.9–37.1; O2SAT 30–100; BMI 25.3
--- NOTE | 2021-10-09 | HIP_PTH ---
PATIENT: JACK NOGUEIRA LOC: [facility] [place] U#:[id number] AGE/SX: 56/F ROOM: RE10/09/[address]: Dr. Frank Ruiz DO : 1965 BED: DIS: 10/09/2021 SPEC #: [id number] RECD: 10/09/21 13:30 STATUS: KATARZYNA ALYCE #: [id number] FABIEN: 10/09/21 00:[address]: Frank Ruiz DEPT: SURGICAL PATHOLOGY RECD BY: Oj Owusu ENTERED: 10/09/21 13:30 SP TYPE: TOTAL HIP OTHR DR: Dr. Enrrique Lockhart MD Tissues: Hip, NOS Procedures: Decalcification bone/plaque Surgery Specimen Level IV HEADER OPERATION: ERAS, total hip replacement robotic arm assist PRE-OP DIAGNOSIS: Degenerative joint disease of right hip TISSUE SUBMITTED: Bone and soft tissue of right hip MICROSCOPIC DIAGNOSIS Bone and tissue of right hip, total hip resection: Severe degenerative joint disease. AM:jackeline 10/12/2021 MICROSCOPIC DESCRIPTION Slides are reviewed. GROSS DESCRIPTION Received is one container labeled with the patient's name and designated bone and soft tissue right hip. The specimen consists of a deformed femoral head measuring 5 x 5 x 4 cm and portion of femoral neck measures up to 1 cm in length. The articular surface displays prominent osteophyte formation, eburnation and bone erosion. Also present in the specimen container are multiple irregular fragments of bone reamings and pink-yellow soft tissue measuring in aggregate 6 x 5 x 2 cm and consists predominantly of bone reamings. Vice President Of Brand Management sections are submitted in two cassettes after decalcification as follows: 1 - bone reamings and soft tissue, 2 - femoral head. / SJ:jackeline 10/09/21 TC:5 [facility]: [id number], [id number]
[2021-10-09] MEDS: Lactated Ringers 1,000 ML 999 ML IV (06:12)
[2021-10-09] MEDS: Lactated Ringers 1,000 ML 100 ML IV (06:16)
[2021-10-09] MEDS: Gabapentin 600 MG Tablet PO (06:17)
[2021-10-09] MEDS: Celecoxib 200 MG Capsule 400 MG PO (06:17)
[2021-10-09] MEDS: Scopolamine 1mg/72hr Patch 1 PATCH TD (06:17)
[2021-10-09] MEDS: Acetaminophen 500 MG Tablet 1000 MG PO ×2 (06:17→15:16)
[2021-10-09 06:40] LABS: Bedside Glucose 101 mg/dL (70-110)
[2021-10-09] MEDS: Cefazolin 2 GM in 0.9% Normal Saline 100 ML IV (07:25)
[2021-10-09] MEDS: dexAMETHasone 10 MG/ML Vial IV (07:41)
--- NOTE | 2021-10-09 09:48 | RAD_ITS ---
STUDY: X-RAY - PELVIS AND RIGHT HIP REASON FOR EXAM: Postoperative evaluation of right hip arthroplasty. TECHNIQUE: 2 views of the pelvis and hip. COMPARISON: Radiographs 09/10/2021. FINDINGS: There is postoperative gas in the soft tissues and overlying skin david. Normal bilateral superior and inferior pubic rami. Normal pubic symphysis. Normal bilateral ischial tuberosities. There is a right hip arthroplasty without evidence of complication. RAD/Hip Min 2 Views (Portable) IMPRESSION: Uncomplicated right hip arthroplasty. Electronically Signed: Nba Masters MD at 11:16 EST Tel , Service support ,
[2021-10-09] MEDS: Lactated Ringers 1,000 ML 125 ML IV (09:50)
--- NOTE | 2021-10-09 09:50 | PCM.HP.BLA ---
History and Physical Date of Admission: 10/09/21 Date of Service: 09/10/21 MR#:[id number]: JACK DUNN [facility] #:[id number]:[id number] Provider:Dr. Frank Ruiz DOAge/Sex: 56/F Location:[facility]:Signed Intake Vital Signs 09/10/21 09:49 Height 5 ft 4.76 in Weight: 160 lb 6 oz BMI 26.9 Intake Visit Reasons: RIGHT HIP Accompanied by: Self Allergies iodine Allergy (Verified 09/10/21 09:49) Swelling Medications acetaminophen 1,000 mg PO Q8 #100 tab 09/20/20 [Rx Confirmed 09/10/21] citalopram 20 mg tablet 20 mg PO DAILY 09/10/21 [History Confirmed 09/10/21] levothyroxine 200 mcg tablet 175 mcg PO DAILY tab 09/10/21 [History Confirmed 09/10/21] PFSH Medical History (Updated 09/10/21 @ 11:[address] Frank Ruiz DO) Thyroid cancer Surgical History (Updated 09/19/20 @ 07:[address] Frank Ruiz DO) History of cholecystectomy Family History (Updated 05/03/19 @ 10:54 by Sridevi Molina) Other Heart disease Hypertension Social History (Updated 09/10/21 @ 09:51 by Mamie Watkins) household members: other details: father housing: house current occupational status: employed current occupation: Hospitality aid with [employer] Smoking Status: Current every day smoker tobacco type: cigarettes alcohol intake: current alcohol intake frequency: holidays/special occasions only substance use type: does not use what type of physical activity do you participate in: walking seatbelt use: always do you feel safe at home: Yes HPI RIGHT HIP Details: Parts of this documentation were recorded by a scribe, this documentation accurately reflects the service provided and the decisions made by me, Dr. Frank Ruiz DO 09/10/21 0944. JACK DUNN is a 56 year old F here today for c/o right hip pain. Onset: 3-4 months, worsening. Patient states the pain is similar to what she felt with her left hip. Pain begins with her posterior right hip that radiates to her anterior hip that will radiate to her right side of her groin at times. Reports stiffness and tingling, denies numbness. Reports popping, clicking and snapping. Denies her leg giving out, but has buckled and the patient was able to catch herself. Patient has been taking Tylenol and ibuprofen. Patient has been doing home exercises and stretches. Patient was given injections in April of 2021 with her right hip that helped alleviate some pain. Patient felt some relief for 3-4 weeks. Patient denies any accident or injury, and surgeries. Patient denies any usage of substances, and h/o ETOH abuse. 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 Denies any infection currently with her mouth and denies open sores anywhere. ROS [facility] Reports system reviewed and no additional complaints, except as documented, Reports as per HPI, Denies numbness, Reports stiffness and Reports tingling Neuro No numbness and Yes tingling Ortho Exam General General: Yes no acute distress and Yes well groomed Neurologic: Yes alert and Yes oriented x3 Psychologic: Yes reasonable and appropriate Right Hip Skin: No Ecchymosis, No soft tissue swelling and No Erythema internal rotation @90 degree flexion: 3 degrees external rotation @90 degree extension: 10 (crepitation) degrees HIP: weakness with flexion no masses noted significan pain with hip range of motion. Supplemental Info 09/10/2021 x-ray right hip: Advanced hip arthrosis Coding Level of Care Code Off vis,est,level 4 Diagnoses Degenerative joint disease of right hip M16.11 Osteoarthritis type: primary Assessment and Plan Assessment and Plan (1) Degenerative joint disease of right hip: Status: Acute Qualifiers: Osteoarthritis type: primary Qualified Code(s): M16.11 - Unilateral primary osteoarthritis, right hip Plan - Dr. Frank Ruiz, DO: Personally reviewed the patient's medical history, medications, surgeries and recent exams if available. Obtained X-rays of patient's right hip. Personally reviewed X-rays. See chart for further details. Explained to patient her right hip in October of 2020 was bone on bone. However, now her hip is worse. Risks, benefits and alternatives of surgery reviewed including but not limited to bleeding, infection, nerve, artery and/or tissue damage, fracture, VTE, leg length discrepancy, dislocation, need for hip precautions, continued pain and expected post-operative course. Discussed patient will need a CT Scan prior to surgery. Explained patient will not need PT prior to surgery. Discussed cutting down on her smoking especially for surgery. Discussed with same day surgery, patient will be at the hospital for six hours. If patient does not feel comfortable, can change if needed. Advised patient cannot take any NSAIDs seven days prior to surgery. Patient can take Tylenol. All questions answered. Patient in agreement of plan. Follow up two weeks post-op or sooner if pain, swelling, numbness or associated symptoms, or concerns develop. Plan Details Other Orders: Orders: HIP, UNI W/ Pelvis 2-3 Views Today M25.559 09/10/21 1143<Electronically signed by Frank Ruiz DO>Date Frank Ruiz DO I have examined the patient the following changes are noted:I have re-examined the patient. There are no clinical changes since date of exam
--- NOTE | 2021-10-09 09:51 | OP.PCM_ITS ---
Report of Operation Date of Procedure: 10/09/21 Description of Surgical Findings:: Preoperative diagnosis: Right hip DJD Postoperative diagnosis: Same Procedure: CT-guided Makoplasty assisted right total hip arthroplasty Implants: [place] Accolade II stem size 5, 127 degree neck angle -5 neck length 54 mm Trident II acetabular shell with 35 mm cancellous screw 36 mm ceramic head Anesthesia: Spinal EBL: 125 cc Complications: None Condition: Stable to PACU Indication for procedure: This is a 56-year-old female who has had long-standing arthrosis of the hip who has failed conservative treatment and wished to undergo total hip arthroplasty. We did discuss operative versus nonoperative intervention including risks of bleeding, infection , nerve artery tissue damage, need for further surgery, fracture, leg length discrepancy dislocation blood clot and need for postoperative physical therapy and postoperative expectations. An informed consent was signed. Procedure: Patient was met in the preoperative holding area once again the operative extremity was identified by both patient and physician and was marked. Patient was met by anesthesia . Anesthesia was started. patient was then positioned in the lateral decubitus position on a well-padded pegboard with an axillary roll. All bony prominences were checked and padded. The patient was prepped and draped in the usual sterile fashion. A timeout was called to ensure the proper patient procedure and extremity were being contemplated. Anatomic landmarks were palpated and marked for a standard posterior lateral approach. Prior to this the ASIS was palpated and 3 fingerbreadths proximal to this 3 pins were placed at a 45 degree angle into the iliac crest with good purchase, stab incisions were made with a 15 blade into the skin prior to placement. The Makoplasty array was then secured. A 10 blade scalpel was used to make a consumer analyst ior incision through the skin and subcutaneous tissue. retractors were used and electrocautery was used to maintain meticulous hemostasis and dissect full- thickness flaps until the gluteal fascia was reached. The gluteal fascia was incised in line with the gluteal fibers. The bursal tissue was then freed from the underside and a Charnley retractor was placed. The femoral trochanteric checkpoint was placed and leg length was assessed using the trochanteric checkpoint and an EKG lead that was placed on the knee prior to prepping the leg .the fat pad was then elevated off of the external rotators with electrocautery and the external rotators were dissected off of the greater trochanter including the piriformis and were tagged with #1 Ethibond for later repair. The joint capsule opened with posterior trapdoor technique. The hip was surgically dislocated. The measurement on the preoperative CT from the top of the lesser trochanter to the femoral neck cut was marked Hohmann was placed around the lesser trochanter. A neck cutting guide was used to aspen the neck with a Bovie and an oscillating saw was used complete the femoral neck cut. The femoral head was then removed and sized. We then turned our attention to the acetabulum. A Bovie was used to make a perforation in the anterior joint capsule and a Arceo retractor was placed this was repeated in the 6 o'clock position and a wide tegan was placed there. With a long handled knife the labral and pulvinar tissue were removed. We then registered the acetabulum with the pointing array and confirmed our landmarks. Once the socket was thoroughly prepared and labral tissue and pulvinar was removed we single reamed with the robotic arm. We then used the robotic arm to position the acetabular implant and impacted it into place under robotic guidance. We then proceeded to place a posterior superior screw by drilling first measuring and inserting the screw. We then inserted a trial liner. And turned our attention back to the femur at this point a femoral elevator was used. As well as a pointed wide Hohmann around the lesser trochanter and a Hohmann to help retract the gluteus medius. A box chisel was used to remove excess lateral neck followed by a canal finder and a lateralizing reamer. This was followed by sequential broaches. Attention was made of the version within the canal based on preoperative templating. Once the final broach was seated we then trialed reduced the hip it was determined that a 127 degree neck angle with a -5 neck length was the appropriate size. We then checked stability with shuck testing as well as flexion and internal rotation. then proceeded with hip extension and checked leg lengths at the knees and heels as well as with the trochanteric checkpoint and knee EKG lead. At this point trials were removed. A liner was inserted to the cup. The femoral stem was inserted. We re-trialed and then proceeded to impact the femoral head onto the Spike taper. We then surgically reduce the hip check stability again and leg lengths and were satisfied. Betadine rinse was not used secondary to iodine and shellfish allergy however Aricept was used and allowed to sit. everyone changed their gloves. Thorough irrigation was performed. Followed by closure of the external rotators with #2 FiberWire followed by closure of gluteal fascia with #1 Ethibond. 0 Vicryl fat stitches and 2-0 Vicryl subcutaneous stitches and david in the skin. A pulls were placed in the pin sites over the iliac crest with Xeroform 4 x 4 and OpSite. dressing was applied to incisional area with Mepilex Ag and an abduction pillow was placed. Patient tolerated the procedure well there was no intraoperative complications all counts were correct and the patient was brought back to the PACU in stable condition
--- NOTE | 2021-10-09 09:53 | EX.PCM.DISCH ---
Discharge Instructions Activity Weight Bearing Status: Weight bearing as tolerated Keep extremity elevated above heart level: Operative Extremity Dressing / Incision Call your doctor if you observe: Shortness of breath and Chest pain Additional Dressing/Incision Instructions:: Do not shower 72hrs. Begin daily showering warm water antibacterial soap postop day #3( 72hrs Post-operatively) and then daily. Leave the dressing on for 72 hours postoperatively then may remove prior to first shower and change dressing daily after this until no drainage for 2 consecutive days then may leave open to air. Follow hip precautions that were reviewed in hospital. Wear compression stockings, may remove at night. Start physical therapy as directed in hospital. Follow prescriptions instructions do not take any other pain medication or differ dosing without consulting your physician. Do not take oral NSAIDs until blood thinner has been completed , then may begin the day after completion if needed . Call Dr. Ruiz's office with any concerns. Follow Up Care Please Follow Up With: Frank Ruiz DO When: 2 weeks Test Results: Test results from this visit will be discussed in further detail at your follow-up appointment, if applicable. Discharge Plan Admission Attending Provider: Frank Ruiz Primary Care Provider: Enrrique Lockhart Chi Discharge Orders/Prescriptions Prescriptions: New cephalexin [cephalexin] 500 MG capsule 1,000 mg PO Q8 Qty: 4 RF: 0 oxycodone 5 mg tablet 5 - 10 mg PO Q4H PRN (Reason: pain) 7 Days Qty: 60 RF: 0 Eliquis 2.5 mg tablet 2.5 mg PO BID Qty: 42 RF: 0 ondansetron HCl [Zofran] 4 MG tablet 4 mg PO Q6H PRN PRN (Reason: Nausea) 2 Days Qty: 5 RF: 0 acetaminophen [acetaminophen] 500 MG tablet 1,000 mg PO Q6H PRN Qty: 100 RF: 0 Continued levothyroxine 200 mcg tablet 175 mcg PO DAILY RF: 0 citalopram [Celexa] 20 mg tablet 20 mg PO DAILY RF: 0 Discontinued ibuprofen 200 mg Capsule 400 mg PO Q6H PRN (Reason: Pain) RF: 0 acetaminophen 500 MG tablet 1,000 mg PO Q8 PRN (Reason: Pain) RF: 0 Referrals / Follow Up: Enrrique Lockhart Chi, MD [Primary Care Provider] - Disposition Disposition (needs filled in before D/C Order can be placed): Home, Self Care
[2021-10-09] MEDS: oxyCODONE 5 MG Tablet PO (11:26)
[2021-10-09] MEDS: Cefazolin 1 GM/50 ML BAG IV (15:15)
== END 2021-10-09 16:50 | disposition home or self-care (01) ==
LOC: SDC 05:15 → AC 05:16
PROVIDERS: Anesthesiology; PCP Family Medicine Geriatric Medicine; Referring Provider Orthopaedic Surgery; Visit Provider Orthopaedic Surgery
PROC: 8E0Y0CZ Robotic Assisted Procedure of Lower Extremity, Open Approach (ICD-10-PCS; CPT 27130; principal; 2021-10-09 07:00)
DX: M16.11 Unilateral primary osteoarthritis, right hip (principal); F17.210 Nicotine dependence, cigarettes, uncomplicated; Z85.850 Personal history of malignant neoplasm of thyroid
CPT/HCPCS: 01214; 27130; S2900; 73502; 80048; 82962; 82985; 83735; 84443; 85025; 85610; 85730; 86850; 86900; 86901; 87081; 87426; 88305; 88311; 93005; 97162; C1776; C9803; J7120

== ENCOUNTER 2021-11-21 11:30 | Outpatient (RCR) | payer OTHER, SELFPAY ==
--- NOTE | 2021-10-11 11:02 | HP.PTEVAL ---
Patient's Visit Information JACK DUNN is a 56 year old F referred to Physical Therapy by Dr. Frank Ruiz DO with a diagnosis of Right THR. Date of Evaluation: 10/11/21 Physical Therapist: Hamida Rae DPT - Visit Plan Frequency: 3x /Week Duration: 4 Weeks Plan: Right THR 10/09/21- Focus on LE and core strength/stabilization with functional mobility- currently drop foot on the right. HEP Given IE: Reviewed Current-HR/TR, standing marching, standing hip abduction, hip add with ball seated - Subjective Right THR by Dr. Adams on 10/09/2021. Went home directly after surgery- two story home- with 3 big wide steps to enter built for a walker- No problems getting up/down as there are HR on both sides- walker on both floors. Lives with her father- but he is unable to help- she has family close. Fully I prior to surgery- had Left THR Aug 2020- returned to all normal activities without issues. Posterior approach- no bending, twisting or crossing midline. Worst: 06/02 Agg: sitting and not being able to get comfortable. Best: 1-2 Eases: pain meds/Tylenol- best in recliner. Sleep: recliner currently but will get back to bed when she can. Pain is located in the incision and towards her buttocks- no radiating pain down the leg. Does have slight N/T in her right foot- daughter put stockings on to help with discomfort and swelling. Describes the pain as dull and achy- no sharp/shooting pains. Dressing is still over incision- knows that she needs to change it tomorrow. No x-rays or MRI since surgery. Goes back to 10/22. Very active- Work: [employer]- push w/c- no transfers or heavy lifting- off until Dec. PMHx/Meds: no changes since surgery. - Objective Posture: FH, RS- can correct but does not maintain. Gait: antalgic- decreased stance on the right LE with standard walker- decreased DF on the right with heel raise on left to progress foot forwards. HR: able bilateral with UE A. TR: visible but does not lift off ground in sitting or standing. SLS: weight shift but unable to SLS. Stairs: asc./desc non recip with bilateral HR. ROM: Hip: flexion: 60 degrees, Extn: 10 degrees from neutral- Knee: Flexion: 110 degrees Extn: 0 degrees. Strength: Core: fair minus, Hip: SLR: unable without max A, quad set visible- Flexion: 3.8 Extn: 17.5. Knee: 4+/5, Ankle: DF: trace PF: 4+/5. WOMAC: 20.84. Study: Z59K - Balance/Special Test Scores Lower Extremity Functional Score: 5 TUG Test Time Seconds: 46.54 30 Second Chair Rise Test Seconds: 9 WOMAC Total Score: 76 WOMAC Percentatge: 20.8400 - Goals Goal 1:: Patient will be I with HEP and progression Goal Time Frame: 4-6 Weeks Goal 2:: Patient will ambulate >300 feet with a normalized gait pattern and LRD Goal Time Frame: 4-6 Weeks Goal 3:: Patient will asc/desc 8 stairs recip with 1 HR Goal Time Frame: 4-6 Weeks Goal 4:: Patient will decrease her TUG score to <10 seconds Goal Time Frame: 4-6 Weeks Goal 5:: Patient will transfer without UE A Goal Time Frame: 4-6 Weeks - Rehabilitation Potential Physical Therapy Diagnosis: Patient presents with hypomobility- she has decreased ROM, strength, flex and muscular endurance s/p right THR leading to abnormal gait and inability to perform I ADL's. Rehabilitation Potential: Good - Anticipated Interventions Patient/Client Instruction: Educate patient on: Benefits of Fitness Program Therapeutic Exercise to Include: Strength training, Endurance training, Balance training, Coordination, Agility training, Body mechanics, Postural training, Flexibilty training, Gait and locomotor training, Neuromotor development, Passive ROM, Active ROM, Dynamic Lumbar Stabilization, Scapular Strength/Stabilization For the Purpose of:: To improve muscle performance and motor function TENS: Yes Cryotherapy (ice pack, ice massage): Yes Thermo therapy (hot pack): Yes Ultrasound (thermal/non thermal): No Thank you for the opportunity to evaluate your patient. For Medicare and Medicare HMO plans, please review the plan of care and approve it. It will need to be FAXED BACK to us at [phone] for Medicare purposes. For Medicare only, by signing this I certify the plan of care. Please let me know if there are questions or concerns regarding this plan of care. Physician Signature: Date:
--- NOTE | 2021-11-14 11:50 | HP.PTREVAL_ITS ---
Dr. Frank Ruiz, DO, It has been my pleasure to treat JACK DUNN over the last 12 visits for Right THR. Please see the progress note below for an update on the physical therapy plan of care! Subjective: She is using a cane more due to the foot drop- is walking without it at home. Feels confident without the cane. Does have some soreness but not pa in. Objective/Function: Posture: FH, RS- can correct but does not maintain. Gait: antalgic- foot drop on the right- significant hip flexion for compensation HR: able bilateral with UE A. TR: visible but does not lift off ground in sitting or standing. SLS:10 sec Stairs: asc./desc recip with 1 HR ROM: Hip: flexion: 90 degrees, Extn: neutral Strength: Core: fair plus, Hip: 4+/5 Flexion: 27. 5 Extn: 52.0 . Knee: 5/5, Ankle: DF: trace PF: 4+/5. WOMAC: Study: Z59K Plan Plan: Add increased machine strengthening next rx. Right THR 10/09/21- Focus on LE and core strength/stabilization with functional mobility- currently drop foot on the right. 11/14/2021: Continue to progress towards goals. Balance/Gait/Functional tests - Balance/Special Test Scores Lower Extremity Functional Score: 30 TUG Test Time Seconds: 11.5 Tug Test: <20 sec.=mostly independent 30 Second Chair Rise Test Seconds: 12 WOMAC Total Score: 76 WOMAC Percentage: 20.8400 Goals Goal 1:: Patient will be I with HEP and progression Goal Time Frame: 4-6 Weeks Goal Progress: Progressing Goal 2:: Patient will ambulate >300 feet with a normalized gait pattern and LRD Goal Time Frame: 4-6 Weeks Goal Progress: Progressing Goal 3:: Patient will asc/desc 8 stairs recip with 1 HR Goal Time Frame: 4-6 Weeks Goal Progress: Progressing Goal 4:: Patient will decrease her TUG score to <10 seconds Goal Time Frame: 4-6 Weeks Goal Progress: Progressing Goal 5:: Patient will transfer without UE A Goal Time Frame: 4-6 Weeks Goal Progress: Progressing Anticipated Interventions Patient/Client Instruction: Educate patient on: Benefits of Fitness Program Therapeutic Exercise to Include: Strength training, Endurance training, Balance training, Coordination, Agility training, Body mechanics, Postural training, Flexibilty training, Gait and locomotor training, Neuromotor development, Passive ROM, Active ROM, Dynamic Lumbar Stabilization, Scapular Strength/Stabilization For the Purpose of:: To improve muscle performance and motor function TENS: Yes Cryotherapy (ice pack, ice massage): Yes Thermo therapy (hot pack): Yes Ultrasound (thermal/non thermal): No Please do not hesitate to contact me at [phone] by phone or if you have questions or concerns regarding this new plan of care! Sincerely, YESSICA ThackerT
--- NOTE | 2021-11-21 13:58 | HP.PTDCSUM ---
It has been my pleasure to treat JACK DUNN referred by Dr. Frank Ruiz DO, with the diagnosis of Right THR for a total of 13 visit(s). Discharge Date: Please see the following information for a summary of their discharge status. Subjective: Just saw who is happy with progress- ordered AFO and will have it next week. Her only concern in the foot. There is nothing at home she can't do- not allowed to bend- she was told to go a few more weeks and then gradually return to no restrictions. Right hip Pain Intensity (Out of 10): 0 % Improvement: 80 Objective/Function: Posture: FH, RS- can correct but does not maintain. Gait: antalgic- foot drop on the right- significant hip flexion for compensation HR: able bilateral with UE A. TR: visible but does not lift off ground in sitting or standing. SLS:10 sec Stairs: asc./desc recip with 1 HR ROM: Hip: flexion: 90 degrees, Extn: neutral Strength: Core: fair plus, Hip: 4+/5 Flexion: 27. 5 Extn: 52.0 . Knee: 5/5, Ankle: DF: trace PF: 4+/5. Study: Z59K Goal 1:: Patient will be I with HEP and progression Goal Progress: Progressing Goal 2:: Patient will ambulate >300 feet with a normalized gait pattern and LRD Goal Progress: Progressing Goal 3:: Patient will asc/desc 8 stairs recip with 1 HR Goal Progress: Progressing Goal 4:: Patient will decrease her TUG score to <10 seconds Goal Progress: Progressing Goal 5:: Patient will transfer without UE A Goal Progress: Progressing Plan: Discharge to home exercise program If there are questions or concerns regarding this patient's physical therapy, please feel free to call me at [phone]. Thank you for the referral of this patient. Sincerely, Hamida Rae, DPT Balance/Gait/Functional tests - Balance/Special Test Scores Lower Extremity Functional Score: 26 TUG Test Time Seconds: 11.5 Tug Test: <20 sec.=mostly independent 30 Second Chair Rise Test Seconds: 12 WOMAC Total Score: 76 WOMAC Percentage: 20.8400
== END 2021-11-21 19:00 | disposition home or self-care (01) ==
LOC: PT 11:30
PROVIDERS: PCP Family Medicine Geriatric Medicine; Referring Provider Orthopaedic Surgery; Visit Provider Orthopaedic Surgery
DX: Z47.1 Aftercare following joint replacement surgery (principal); Z96.641 Presence of right artificial hip joint
CPT/HCPCS: 97110; 97162; 97164

== ENCOUNTER → 2022-06-03 | Outpatient (CLI) | payer OTHER, SELFPAY ==
[2022-06-03 12:27] LABS: Absolute Lymphocyte Count 1.79 X10^3/uL (0.83-4.51); Absolute Neutrophil Count 9.6 X10^3/uL (2.0-7.7); Basophil# 0.06 X10^3/uL; Basophil% 0.5 % (0-1); Eosinophil# 0.14 X10^3/uL; Eosinophils% 1.1 % (0-5); Hematocrit 41.7 % (37-47); Hemoglobin 13.9 g/dL (12.0-15.0); Lymphocyte # 1.79 X10^3/ul (0.83-4.51); Lymphocyte % 14.6 % (19-41); Mean Corp Hgb Conc 33.3 g/dL (32-36); Mean Corpuscular Hgb 31.5 pg (27.0-32.0); Mean Corpuscular Volume 94.6 fL (81-99); Mean Platelet Vol. 9.8 fl (6.2-12.0); Monocyte# 0.66 X10^3/uL; Monocyte% 5.4 % (0-10); NRBC Flagged by Analyzer 0 % (0-5); Neutrophil # 9.61 X10^3/uL (2.7-7.7); Neutrophil % 78.1 % (47-70); Platelet Count 304 K/mm3 (150-450); RBC Distribution Width CV 13.4 % (11.6-14.6); RBC Distribution Width SD 46.6 fl (35.1-43.9); Red Blood Count 4.41 M/mm3 (4.2-5.4); White Blood Count 12.3 K/mm3 (4.4-11.0)
[2022-06-03 13:06] LABS: ALB/GLOB Ratio 1.1 RATIO (0.9-2.4); AST(SGOT) 19 U/L (15-37); Alanine Aminotransfer ALT/SGPT 22 U/L (13-56); Albumin, Serum 3.6 g/dL (3.2-5.0); Alkaline Phosphatase 97 U/L (45-117); Anion Gap 7 (5-15); BUN 12 mg/dL (7-18); Calcium,Total 8.7 mg/dL (8.5-10.1); Chloride 107 mmol/L (98-107); Creatinine, Serum 0.71 mg/dL (0.55-1.02); EST Glomerular Filtration Rate 90 mL/min (>60); Est Glom Filt Rate - Afr Amer 109 mL/min (>60); Globulin 3.4 g/dL (2.2-4.2); Glucose 115 mg/dL (74-106); Potassium 4.3 mmol/L (3.5-5.1); Sodium Level 141 mmol/L (136-145); Thyroid Stim Hormone (TSH) 0.04 uIU/mL (0.358-3.74)
== END | disposition home or self-care (01) ==
LOC: POLAB3 11:50
PROVIDERS: PCP Family Medicine Geriatric Medicine; Visit Provider Family Medicine Geriatric Medicine
DX: R53.83 Other fatigue (principal)
CPT/HCPCS: 36415; 80053; 84443; 85025

== ENCOUNTER → 2022-07-31 | Outpatient (CLI) | payer OTHER, SELFPAY ==
[2022-07-31 12:47] LABS: Thyroid Stim Hormone (TSH) 0.16 uIU/mL (0.358-3.74)
== END | disposition home or self-care (01) ==
LOC: POLAB3 10:03
PROVIDERS: PCP Family Medicine Geriatric Medicine; Visit Provider Family Medicine Geriatric Medicine
DX: E03.9 Hypothyroidism, unspecified (principal)
CPT/HCPCS: 36415; 84443

== ENCOUNTER → 2022-08-02 | Outpatient (CLI) | payer OTHER, SELFPAY ==
--- NOTE | 2022-08-02 12:08 | RAD_ITS ---
STUDY: X-RAY - RIGHT FOOT CLINICAL: Female, 57 years old. Cellulitis. TECHNIQUE: 3 view(s) of the foot. COMPARISON: None. FINDINGS: Normal talus and tarsal bones. Normal visualized subtalar, talonavicular, calcaneocuboid, tarsal and tarsometatarsal articulations. Normal metatarsi. Normal metatarsophalangeal joint of the great toe. Normal tibial and fibular sesamoid bones. Normal interphalangeal joint of the great toe. Normal phalanges of the great toe. Normal second through fifth metatarsophalangeal joints. Normal interphalangeal joints and phalanges of the lesser toes. The soft tissue structures are unremarkable. RAD/Foot min 3 Views IMPRESSION: Normal x-ray examination of the foot. Electronically Signed: Eamon Eid DO at 22:41 EDT ,
[2022-08-02 14:11] LABS: M R Staph aureus DNA By PCR Negative (Negative); Probe Check PASS; Specimen Processing Control PASS; Staph aureus DNA By PCR POSITIVE (Negative)
== END | disposition home or self-care (01) ==
PROVIDERS: PCP Family Medicine Geriatric Medicine; Visit Provider Family Medicine Geriatric Medicine
DX: L03.039 Cellulitis of unspecified toe (principal); T07.XXXA Unspecified multiple injuries, initial encounter
CPT/HCPCS: 73630; 87070; 87077; 87186; 87205; 87640

== ENCOUNTER → 2022-08-21 | Outpatient (CLI) | payer OTHER, SELFPAY ==
[2022-08-21 10:16] LABS: Erythrocyte Sedimentation Rate 5 mm/hr (0-30)
[2022-08-21 10:20] LABS: Basophil# 0.11 X10^3/uL; Basophil% 1.1 % (0-1); Eosinophil# 0.46 X10^3/uL; Eosinophils% 4.8 % (0-5); Hematocrit 44.6 % (37-47); Hemoglobin 15.2 g/dL (12.0-15.0); Lymphocyte % 14.6 % (19-41); Mean Corp Hgb Conc 34.1 g/dL (32-36); Mean Corpuscular Hgb 32.4 pg (27.0-32.0); Mean Corpuscular Volume 95.1 fL (81-99); Mean Platelet Vol. 10.2 fl (6.2-12.0); Monocyte# 0.64 X10^3/uL; Monocyte% 6.7 % (0-10); NRBC Flagged by Analyzer 0 % (0-5); Neutrophil # 6.96 X10^3/uL (2.7-7.7); Neutrophil % 72.6 % (47-70); Platelet Count 270 K/mm3 (150-450); RBC Distribution Width SD 48.8 fl (35.1-43.9); Red Blood Count 4.69 M/mm3 (4.2-5.4); White Blood Count 9.6 K/mm3 (4.4-11.0)
[2022-08-21 10:32] LABS: ALB/GLOB Ratio 0.9 RATIO (0.9-2.4); AST(SGOT) 20 U/L (15-37); Alanine Aminotransfer ALT/SGPT 26 U/L (13-56); Albumin, Serum 3.5 g/dL (3.2-5.0); Alkaline Phosphatase 77 U/L (45-117); Anion Gap 7 (5-15); BUN 15 mg/dL (7-18); BUN/Creat Ratio 21.6 RATIO (10-20); CRP < 2.90 mg/L (0.0-3.0); Calcium,Total 8.8 mg/dL (8.5-10.1); Chloride 109 mmol/L (98-107); Creatinine, Serum 0.69 mg/dL (0.55-1.02); EST Glomerular Filtration Rate 92 mL/min (>60); Est Glom Filt Rate - Afr Amer 111 mL/min (>60); Globulin 3.9 g/dL (2.2-4.2); Glucose 110 mg/dL (74-106); Potassium 3.9 mmol/L (3.5-5.1); Protein, Total 7.4 g/dL (6.4-8.2); Sodium Level 141 mmol/L (136-145)
== END | disposition home or self-care (01) ==
LOC: MTLAB 08:30
PROVIDERS: PCP Family Medicine Geriatric Medicine; Referring Provider Podiatrist; Visit Provider Podiatrist
DX: L03.031 Cellulitis of right toe (principal)
CPT/HCPCS: 36415; 80053; 85025; 85652; 86140

== ENCOUNTER → 2023-10-29 | Outpatient (CLI) | payer OTHER, SELFPAY ==
[2023-10-29 12:36] LABS: Absolute Lymphocyte Count 1.73 X10^3/uL (0.83-4.51); Absolute Neutrophil Count 5.7 X10^3/uL (2.0-7.7); Basophil# 0.12 X10^3/uL; Basophil% 1.4 % (0-1); Eosinophil# 0.25 X10^3/uL; Hematocrit 43.8 % (37-47); Hemoglobin 14.8 g/dL (12.0-15.0); Lymphocyte # 1.73 X10^3/ul (0.83-4.51); Lymphocyte % 20.4 % (19-41); Mean Corp Hgb Conc 33.8 g/dL (32-36); Mean Corpuscular Hgb 33.3 pg (27.0-32.0); Mean Corpuscular Volume 98.4 fL (81-99); Mean Platelet Vol. 10.7 fl (6.2-12.0); Monocyte# 0.61 X10^3/uL; Monocyte% 7.2 % (0-10); NRBC Flagged by Analyzer 0 % (0-5); Neutrophil # 5.72 X10^3/uL (2.7-7.7); Neutrophil % 67.6 % (47-70); Platelet Count 221 K/mm3 (150-450); RBC Distribution Width CV 13.9 % (11.6-14.6); RBC Distribution Width SD 50.4 fl (35.1-43.9); Red Blood Count 4.45 M/mm3 (4.2-5.4); White Blood Count 8.5 K/mm3 (4.4-11.0)
[2023-10-29 13:08] LABS: Free T3 < 0.5 pg/mL (2.18-3.98); T4 Free Direct 0.14 ng/dL (0.76-1.46)
[2023-10-29 13:22] LABS: Hepatitis C Antibody Non-Reactive (Nonreactive)
[2023-10-29 14:03] LABS: ALB/GLOB Ratio 1.2 RATIO (0.9-2.4); AST(SGOT) 56 U/L (15-37); Alanine Aminotransfer ALT/SGPT 38 U/L (13-56); Albumin, Serum 4.2 g/dL (3.2-5.0); Alkaline Phosphatase 58 U/L (45-117); Anion Gap 8 (5-15); BUN 11 mg/dL (7-18); BUN/Creat Ratio 11.4 RATIO (10-20); Calcium,Total 8.6 mg/dL (8.5-10.1); Chloride 103 mmol/L (98-107); Creatinine, Serum 0.97 mg/dL (0.55-1.02); EST Glomerular Filtration Rate 62 mL/min (>60); Est Glom Filt Rate - Afr Amer 76 mL/min (>60); Globulin 3.5 g/dL (2.2-4.2); Glucose 94 mg/dL (74-106); Potassium 3.6 mmol/L (3.5-5.1); Protein, Total 7.7 g/dL (6.4-8.2); Sodium Level 137 mmol/L (136-145)
== END | disposition home or self-care (01) ==
PROVIDERS: PCP Family Medicine Geriatric Medicine; Visit Provider Family Medicine Geriatric Medicine
DX: R53.83 Other fatigue (principal); E78.5 Hyperlipidemia, unspecified; Z13.89 Encounter for screening for other disorder
CPT/HCPCS: 36415; 80053; 84439; 84443; 84481; 85025; 86803